=== PATIENT | female | born 1940 | race Caucasian/White ===

== ENCOUNTER → 2023-11-14 14:50 | Outpatient (REF) | payer OTHER, SELFPAY | LOC: HWRAD 14:50 | PROVIDERS: ATTENDING PHYSICIAN Nurse Practitioner Family | DX: J40 Bronchitis, not specified as acute or chronic (principal) | CPT/HCPCS: 71046 ==

== ENCOUNTER → 2023-12-16 07:11 | Outpatient (REF) | payer OTHER, SELFPAY ==
[2023-12-16 09:23] LABS: ALT (SGPT) 18 U/L (0-35); AST (SGOT) 26 U/L (14-36); Albumin 4.1 g/dl (3.5-5.0); Alkaline Phosphatase 107 U/L (38-126); Blood Urea Nitrogen 14 mg/dl (7-17); Carbon Dioxide 25 mmol/L (22-30); Chloride 102 mmol/L (98-107); Glucose 108 mg/dl (70-99); HDL Cholesterol 51 mg/dl; LDL Cholesterol, Calculated 84 mg/dl; Potassium 4.3 mmol/L (3.5-5.1); Sodium 137 mmol/L (135-145); Total Bilirubin 0.7 mg/dl (0.2-1.3); Total Cholesterol 182 mg/dl (50-199); Total Protein 6.9 g/dl (6.3-8.2); Triglyceride 238 mg/dl (10-149); Very Low Density Lipoprotein 47 mg/dl (0-30); eGFR > 60.00
[2023-12-16 09:29] LABS: % Basophils 0.9 % (0-2); % Eosinophils 5.3 % (0-6); % Immature Granulocytes 0.2 % (0-0.5); % Lymphocytes 29.7 % (20.5-51.1); % Monocytes 10.1 % (1.7-9.3); % Neutrophils 53.8 % (42.2-75.2); Absolute Basophils 0.1 10^3/uL (0-0.2); Absolute Eosinophils 0.3 10^3/uL (0-0.7); Absolute Lymphocytes 1.7 10^3/uL (1.2-3.4); Absolute Monocytes 0.6 10^3/uL (0.1-0.6); Hematocrit 33.3 % (37.0-47.0); Hemoglobin 11.5 g/dL (12.0-16.0); Mean Corp Hgb Conc. 34.5 g/dL (33.0-37.0); Mean Corpuscular Hgb 29.2 pg (27.0-31.0); Mean Corpuscular Volume 84.5 fL (81.0-99.0); Mean Platelet Volume 11.7 fL (7.4-10.4); Nucleated Red Blood Cells % 0 %; Platelet Count 303 10^3/uL (130-400); Red Blood Cell Count 3.94 10^6/uL (4.20-5.40); Red Cell Dist. Width 12.9 % (11.5-14.5); White Blood Cell Count 5.6 10^3/uL (4.8-10.8)
[2023-12-16 09:54] LABS: TSH Reflex To Free T4 0.87 uIU/ml (0.47-4.68)
[2023-12-16 10:29] LABS: Glycohemoglobin (HgbA1c) 6.4 % (4.0-5.6)
== END ==
LOC: HWLAB 07:11
PROVIDERS: ATTENDING PHYSICIAN Nurse Practitioner Family
DX: I10 Essential (primary) hypertension (principal); E78.2 Mixed hyperlipidemia; D64.9 Anemia, unspecified; R73.01 Impaired fasting glucose
CPT/HCPCS: 36415; 80053; 80061; 83036; 84443; 85025

== ENCOUNTER → 2024-06-23 07:01 | Outpatient (REF) | payer OTHER, SELFPAY ==
[2024-06-23 09:36] LABS: % Basophils 0.7 % (0-2); % Eosinophils 4.2 % (0-6); % Immature Granulocytes 0.2 % (0-0.5); % Lymphocytes 33.1 % (20.5-51.1); % Monocytes 9.3 % (1.7-9.3); % Neutrophils 52.5 % (42.2-75.2); Absolute Eosinophils 0.2 10^3/uL (0-0.7); Absolute Lymphocytes 1.9 10^3/uL (1.2-3.4); Absolute Monocytes 0.5 10^3/uL (0.1-0.6); Hematocrit 35.8 % (37.0-47.0); Hemoglobin 11.7 g/dL (12.0-16.0); Mean Corp Hgb Conc. 32.7 g/dL (33.0-37.0); Mean Corpuscular Hgb 29.5 pg (27.0-31.0); Mean Corpuscular Volume 90.2 fL (81.0-99.0); Mean Platelet Volume 12.5 fL (7.4-10.4); Nucleated Red Blood Cells % 0 %; Platelet Count 228 10^3/uL (130-400); Red Blood Cell Count 3.97 10^6/uL (4.20-5.40); Red Cell Dist. Width 12.9 % (11.5-14.5); White Blood Cell Count 5.7 10^3/uL (4.8-10.8)
[2024-06-23 09:47] LABS: ALT (SGPT) 30 U/L (0-35); AST (SGOT) 28 U/L (14-36); Alkaline Phosphatase 92 U/L (38-126); Blood Urea Nitrogen 18 mg/dl (7-17); Calcium 9.6 mg/dl (8.4-10.2); Carbon Dioxide 25 mmol/L (22-30); Chloride 104 mmol/L (98-107); Glucose 109 mg/dl (70-99); HDL Cholesterol 68 mg/dl; LDL Cholesterol, Calculated 107 mg/dl; Potassium 4.1 mmol/L (3.5-5.1); Sodium 138 mmol/L (135-145); Total Bilirubin 0.6 mg/dl (0.2-1.3); Total Cholesterol 215 mg/dl (50-199); Total Protein 6.8 g/dl (6.3-8.2); Triglyceride 203 mg/dl (10-149); Very Low Density Lipoprotein 40 mg/dl (0-30); eGFR > 60.00
[2024-06-23 10:13] LABS: TSH Reflex To Free T4 0.88 uIU/ml (0.47-4.68)
[2024-06-23 10:43] LABS: Glycohemoglobin (HgbA1c) 6.1 % (4.0-5.6)
== END ==
LOC: HWLAB 07:01
PROVIDERS: ATTENDING PHYSICIAN Nurse Practitioner Family
DX: I10 Essential (primary) hypertension (principal); E78.2 Mixed hyperlipidemia; D64.9 Anemia, unspecified; R73.01 Impaired fasting glucose
CPT/HCPCS: 36415; 80053; 80061; 83036; 84443; 85025

== ENCOUNTER → 2024-07-27 11:50 | Outpatient (REF) | payer OTHER, SELFPAY ==
[2024-07-27 16:30] LABS: % Basophils 0.5 % (0-2); % Eosinophils 1.9 % (0-6); % Immature Granulocytes 0.3 % (0-0.5); % Lymphocytes 23.3 % (20.5-51.1); % Monocytes 7.9 % (1.7-9.3); % Neutrophils 66.1 % (42.2-75.2); Absolute Eosinophils 0.1 10^3/uL (0-0.7); Absolute Lymphocytes 1.7 10^3/uL (1.2-3.4); Absolute Monocytes 0.6 10^3/uL (0.1-0.6); Absolute Neutrophils 4.9 10^3/uL (1.4-6.5); Hematocrit 36.7 % (37.0-47.0); Hemoglobin 12.6 g/dL (12.0-16.0); Mean Corp Hgb Conc. 34.3 g/dL (33.0-37.0); Mean Corpuscular Hgb 29.4 pg (27.0-31.0); Mean Corpuscular Volume 85.7 fL (81.0-99.0); Nucleated Red Blood Cells % 0 %; Platelet Count 239 10^3/uL (130-400); Red Blood Cell Count 4.28 10^6/uL (4.20-5.40); Red Cell Dist. Width 12.5 % (11.5-14.5); White Blood Cell Count 7.4 10^3/uL (4.8-10.8)
[2024-07-27 16:39] LABS: Blood Urea Nitrogen 16 mg/dl (7-17); Calcium 9.7 mg/dl (8.4-10.2); Carbon Dioxide 24 mmol/L (22-30); Chloride 99 mmol/L (98-107); Glucose 113 mg/dl (70-99); Sodium 136 mmol/L (135-145); eGFR > 60.00
[2024-07-27 17:10] LABS: TSH Reflex To Free T4 0.32 uIU/ml (0.47-4.68)
[2024-07-27 17:39] LABS: Free T4 1.43 ng/dl (0.78-2.19)
== END ==
LOC: HWLAB 11:50
PROVIDERS: ATTENDING PHYSICIAN Nurse Practitioner Family
DX: I10 Essential (primary) hypertension (principal)
CPT/HCPCS: 36415; 80048; 84439; 84443; 85025

== ENCOUNTER → 2024-08-04 12:49 | Outpatient (REF) | payer OTHER, SELFPAY ==
[2024-08-04 17:05] LABS: TSH Reflex To Free T4 0.04 uIU/ml (0.47-4.68)
[2024-08-04 17:33] LABS: Free T4 1.53 ng/dl (0.78-2.19)
== END ==
LOC: HWLAB 12:49
PROVIDERS: ATTENDING PHYSICIAN Nurse Practitioner Family
DX: R94.6 Abnormal results of thyroid function studies (principal)
CPT/HCPCS: 36415; 84439; 84443

== ENCOUNTER → 2024-08-18 11:00 | Outpatient (REF) | payer OTHER, SELFPAY | LOC: HWRCS 11:00 | PROVIDERS: ATTENDING PHYSICIAN Nuclear Medicine Nuclear Cardiology; FAMILY PHYSICIAN Nurse Practitioner Family | DX: I10 Essential (primary) hypertension (principal); I34.0 Nonrheumatic mitral (valve) insufficiency; R60.0 Localized edema | CPT/HCPCS: 93306 ==

== ENCOUNTER → 2024-11-13 09:24 | Outpatient (REF) | payer OTHER, SELFPAY | LOC: HWRAD 09:24 | PROVIDERS: ATTENDING PHYSICIAN Nurse Practitioner Family; FAMILY PHYSICIAN Nurse Practitioner Family | DX: E05.90 Thyrotoxicosis, unspecified without thyrotoxic crisis or storm (principal) | CPT/HCPCS: 76536 ==

== ENCOUNTER → 2024-11-24 07:02 | Outpatient (REF) | payer OTHER, SELFPAY ==
[2024-11-24 10:35] LABS: Free T4 1.41 ng/dl (0.78-2.19)
[2024-11-24 10:39] LABS: Free T3 3.93 pg/ml (2.77-5.27)
[2024-11-24 14:50] LABS: TSH 0.57 uIU/ml (0.47-4.68)
[2024-11-26 03:04] LABS: Thyroid Peroxidase Ab (TPO) 39.9 IU/mL (0.0-9.0)
[2024-11-26 03:44] LABS: Thyroglobulin 2.4 ng/mL (1.3-31.8); Thyroglobulin Antibodies <1.5 IU/mL (0.0-4.0)
[2024-11-26 10:50] LABS: TSH Receptor Antibody 1.24 IU/L (<=1.75)
[2024-11-26 18:33] LABS: Thyroid Stim. Immunoglobulin 0.93 IU/L (<=0.54)
== END ==
LOC: HWLAB 07:02
PROVIDERS: ATTENDING PHYSICIAN Nurse Practitioner Family; FAMILY PHYSICIAN Nurse Practitioner Family
DX: E05.90 Thyrotoxicosis, unspecified without thyrotoxic crisis or storm (principal)
CPT/HCPCS: 36415; 83520; 84432; 84439; 84443; 84445; 84481; 86376; 86800

== ENCOUNTER → 2024-11-26 06:28 | Outpatient (REF) | payer OTHER, SELFPAY | LOC: RAD 06:28 | PROVIDERS: ATTENDING PHYSICIAN Nurse Practitioner Family; FAMILY PHYSICIAN Nurse Practitioner Family | DX: E05.90 Thyrotoxicosis, unspecified without thyrotoxic crisis or storm (principal) | CPT/HCPCS: 78014; A9516 ==

== ENCOUNTER → 2024-12-14 06:37 | Outpatient (REF) | payer OTHER, SELFPAY ==
[2024-12-14 09:58] LABS: % Basophils 0.7 % (0-2); % Eosinophils 3.6 % (0-6); % Immature Granulocytes 0.3 % (0-0.5); % Lymphocytes 30.7 % (20.5-51.1); % Monocytes 9.7 % (1.7-9.3); Absolute Eosinophils 0.2 10^3/uL (0-0.7); Absolute Lymphocytes 1.8 10^3/uL (1.2-3.4); Absolute Monocytes 0.6 10^3/uL (0.1-0.6); Absolute Neutrophils 3.3 10^3/uL (1.4-6.5); Hematocrit 34.4 % (37.0-47.0); Mean Corp Hgb Conc. 34.9 g/dL (33.0-37.0); Mean Platelet Volume 12.7 fL (7.4-10.4); Nucleated Red Blood Cells % 0 %; Platelet Count 190 10^3/uL (130-400); Red Cell Dist. Width 12.4 % (11.5-14.5); White Blood Cell Count 5.9 10^3/uL (4.8-10.8)
[2024-12-14 10:23] LABS: Glycohemoglobin (HgbA1c) 6.2 % (4.0-5.6)
[2024-12-14 10:59] LABS: ALT (SGPT) 15 U/L (0-35); AST (SGOT) 19 U/L (14-36); Alkaline Phosphatase 67 U/L (38-126); Blood Urea Nitrogen 19 mg/dl (7-17); Calcium 9.1 mg/dl (8.4-10.2); Carbon Dioxide 18 mmol/L (22-30); Chloride 108 mmol/L (98-107); Glucose 114 mg/dl (70-99); HDL Cholesterol 55 mg/dl; LDL Cholesterol, Calculated 97 mg/dl; Potassium 3.7 mmol/L (3.5-5.1); Sodium 136 mmol/L (135-145); Total Cholesterol 182 mg/dl (50-199); Total Protein 6.9 g/dl (6.3-8.2); Triglyceride 154 mg/dl (10-149); Very Low Density Lipoprotein 30 mg/dl (0-30); eGFR > 60.00
== END ==
LOC: HWLAB 06:37
PROVIDERS: ATTENDING PHYSICIAN Nurse Practitioner Family
DX: I10 Essential (primary) hypertension (principal); E78.2 Mixed hyperlipidemia; D64.9 Anemia, unspecified; R73.01 Impaired fasting glucose
CPT/HCPCS: 36415; 80053; 80061; 83036; 85025

== ENCOUNTER 2025-01-25 22:19 | Observation (INO) | payer OTHER, SELFPAY ==
[2025-01-25 17:17] VITALS: BP 218/94
[2025-01-25 17:41] LABS: Hematocrit 34.3 % (37.0-47.0); Hemoglobin 11.9 g/dL (12.0-16.0); Mean Corp Hgb Conc. 34.7 g/dL (33.0-37.0); Mean Corpuscular Volume 85.5 fL (81.0-99.0); Nucleated Red Blood Cells % 0 %; Platelet Count 240 10^3/uL (130-400); Red Cell Dist. Width 12.1 % (11.5-14.5)
[2025-01-25 17:48] LABS: INR 1.01; PT 13.6 Sec (11.4-14.6)
[2025-01-25 17:51] LABS: ALT (SGPT) 17 U/L (0-35); AST (SGOT) 24 U/L (14-36); Albumin 4.4 g/dl (3.5-5.0); Alkaline Phosphatase 84 U/L (38-126); Blood Urea Nitrogen 16 mg/dl (7-17); Calcium 9.6 mg/dl (8.4-10.2); Carbon Dioxide 22 mmol/L (22-30); Chloride 102 mmol/L (98-107); Glucose 111 mg/dl (70-99); Potassium 3.5 mmol/L (3.5-5.1); Sodium 133 mmol/L (135-145); Total Protein 7.3 g/dl (6.3-8.2); eGFR > 60.00
[2025-01-25 18:20] LABS: Troponin I 0.059 ng/ml
--- NOTE | 2025-01-25 19:40 | ED.GENMED ---
History of Present Illness
General
Chief Complaint: Blood Pressure Problem
Source: patient
Time Seen by Provider: 01/25/25 19:26
History of Present Illness
History of Present Illness:
84-year-old female presents to the emergency room for evaluation of elevated blood pressure. Patient went for a epidural injection today. She was noted to have significantly elevated blood pressure of 230/110. Patient then followed up with her
primary care provider where her blood pressure was 220 systolic. This prompted her referral to the emergency room. She denies any chest pain, shortness of breath, headache, abdominal pain or back pain. Patient does endorse right-sided neck pain
which she states is consistent with her arthritis that she commonly has. Patient has had no limitations in her activities of daily living. She cleans her house between going to the orthopedic appointment and following up with her family doctor.
Phy Exam
Physical Exam
Physical Exam:
General: Awake, Alert, Oriented X3. No acute distress. Appears stated age
Vitals: Hypertensive
Head: Atraumatic
Eyes: Pupils equal, EOMI
Throat: Airway intact, no exudates
Neck: Trachea midline
Lungs: Clear and equal b/l
Heart: Regular rate, no murmurs
Abd: Soft, Nontender, No pulsatile mass
Neuro: Nonfocal
Skin: Warm, dry, no rash
Extremities: pulses equal b/l, no edema
Course
Orders/Labs/Results
Orders:
Orders
01/25/25 Breakfast
Cholesterol Lowering
At Your Request: Limited Participation
Does patient need a safe tray?: No
Cholesterol Lowering: Sodium, 2 Gram
01/25/25 17:24
Electrocardiogram (*1) Urgent
Reason for Study: Chest Pain
EKG- Treatment ONCE
01/25/25 17:31
Complete Blood Count/With Diff Urgent
Comprehensive Metabolic Panel Urgent
Prothrombin Time Urgent
Troponin I Urgent
01/25/25 19:43
Electrocardiogram (*1) Urgent
Reason for Study: Hypertension, Benign
EKG- Treatment ONCE
01/25/25 20:15
Metoprolol [Lopressor] 25 mg .ROUTE .STK-MED ONE
Metoprolol [Lopressor] 50 mg .ROUTE .STK-MED ONE
01/25/25 20:18
Metoprolol [Lopressor] 75 mg PO NOW STA
01/25/25 20:22
Troponin I Urgent
01/25/25 21:27
Labetalol HCl [Trandate] 10 mg IV NOW STA
01/25/25 21:33
Acetaminophen [Tylenol] 1,000 mg PO NOW STA
01/25/25 21:58
Admit/Transfer Patient As Directed
Co-Sign Provider:
Level of Care: Observation services
Assign to:: Telemetry
Physician / Group: michael
Diagnosis: HTN urgency
Reason for Telemetry: Other
Other Reason for Telemetry: HTN urgency
Date to Stop Telemetry: 01/27/25
Time to Stop Telemetry: 11:00
PRN Pain Medication Management As Directed
May give lesser potent ordered pain med per pt: Yes
preference::
Protocol:: Medication orders for pain may be administered in a
manner that supports deferring to patient preference
when the pt is:
- Requesting an ordered lesser potent pain medication.
Least to most potent pain medications are defined
as: acetaminophen < NSAID < tramadol < opioids
(morphine, oxycodone, hydromorphone).
- Requesting a lesser dose of the same medication IF
ORDERED.
- Requesting a less intrusive route of administration
if both routes are prescribed by the provider (PO <
IV).
01/25/25 21:59
Code Status As Directed
Resuscitation Status: Full Code
01/25/25 22:13
NIFEdipine EXTENDED RELEASE [Procardia Xl (Extended Release)] 30 mg PO NOW STA
01/25/25 22:36
Acetaminophen [Tylenol/Feverall] 650 mg RECTAL Q4HPRN PRN
Bisacodyl [Dulcolax] 10 mg RECTAL [id number] PRN
Docusate W/Senna [Senokot-S] 1 tablet PO BIDPRN PRN
Polyethylene Glycol Powder [Miralax] 17 grams PO DAILYPRN PRN
01/25/25 22:36
Activity As Directed
Activity Level: As Tolerated
Vital Signs As Directed
Frequency: Per unit guidelines
DX Deep Vein Thrombosis Video Routine
01/25/25 23:00
Flush (0.9% Sodium Chloride) [Flush (Nss)] See Dose Instructions IV PER PROTOCOL
01/26/25 06:00
Complete Blood Count/No Diff IN AM
01/26/25 08:00
Lisinopril [Zestril] 20 mg PO DAILY
Metoprolol Xl [Toprol Xl] 75 mg PO DAILY
NIFEdipine EXTENDED RELEASE [Procardia Xl (Extended Release)] 30 mg PO DAILY
Pantoprazole [Protonix] 40 mg PO DAILY
Pravastatin Sodium [Pravachol] 80 mg PO DAILY
01/26/25 18:00
Enoxaparin Sodium [Lovenox] 40 mg SC QPM
01/27/25 11:00
DC Protocol for Telemetry ONCE
Abnormal Lab Results
01/25/25 01/25/25
17:31 20:22
RBC 4.01 L 10^6/uL
(4.20-5.40)
Hgb 11.9 L g/dL
(12.0-16.0)
Hct 34.3 L %
(37.0-47.0)
MPV 11.8 H fL
(7.4-10.4)
Absolute Monos (auto) 0.8 H 10^3/uL
(0.1-0.6)
Sodium 133 L mmol/L
(135-145)
Creatinine 0.5 L mg/dL
(0.6-1.0)
Glucose 111 H mg/dl
(70-99)
Troponin I 0.059 H* ng/ml 0.058 H* ng/ml
01/25/25 17:31
01/25/25 17:31
Vital Signs
Initial and Last Documented VS:
Initial Vital Signs
Temp Pulse Resp BP Pulse Ox
99.0 F 81 18 218/94 96
01/25/25 17:17 01/25/25 17:17 01/25/25 17:17 01/25/25 17:17 01/25/25 17:17
Last Documented Vital Signs
Temp Pulse Resp BP Pulse Ox
97.7 F 73 16 160/72 96
01/25/25 22:53 01/25/25 22:53 01/25/25 22:53 01/25/25 22:53 01/25/25 22:58
MDM/Problems Addressed
Differential Diagnosis Includes:
Hypertensive emergency, uncontrolled hypertension, renal insufficiency,
MDM/Problems Addressed:
Patient presents with significant elevated blood pressure in the outpatient basis. Patient does not really seem to have any significant symptoms. However in testing her troponin is noted to be mildly elevated. Discussed with Dr. Munoz.
Recommends hospitalization for better blood pressure management. Patient initially given her evening dose of metoprolol which did not significantly affect her blood pressure. She was then given a dose of labetalol. With improvement of blood
pressure.
*Pulse Oximetry
SaO2: 96
Oxygen Mode of Delivery: Room air
Patient hypoxic: no
*Product Safety Officer Interpretation
Rate: normal
Interpretation: normal
Heart Rate: 74
Rhythm: sinus
*Critical Care Note
Total Time (30-74mins, 75-104mins- exclusive of procedures): Not Applicable
ED Attending Note
-
Portions of this chart may have been created with voice recognition software.� Occasional wrong word or��sound alike� substitutions may have occurred due to the inherent limitations of voice recognition software.
Discharge Plan
Departure
Patient Disposition: Admit
Date of Disposition: 01/25/25
Time of Disposition: 21:35
Admit to: IMU
Presentation/result/management discussed w/ accepting MD/DO: Hospitalist
Condition: Fair
Discharge Problem:
Uncontrolled hypertension, Elevated troponin
Interventions
Interventions:
*Risk Screen - Suicide Last Done: 01/25/25 17:17
*General Assessment Last Done: 01/25/25 17:17
*Neglect/Abuse Screening Last Done: 01/25/25 17:17
*ED- Fall Risk Assessment Last Done: 01/25/25 19:56
*ED COVID-19 Vaccine History Last Done: 01/25/25 19:56
*Nursing Disposition Last Done: 01/25/25 22:32
ED- Cardiac Assessment Last Done: 01/25/25 19:52
ED- Neurological Assessment Last Done: 01/25/25 19:52
ED- Pulmonary Assessment Last Done: 01/25/25 19:52
Discharge Date and Time
Discharge Date/Time: 01/25/25 22:34
[2025-01-25 19:50] VITALS: BP 205/66
[2025-01-25 19:54] VITALS: BMI 31.1
[2025-01-25] MEDS: LOPRESSOR 75 MG PO (20:19)
[2025-01-25 20:57] VITALS: BP 211/90
[2025-01-25 21:00] VITALS: BP 203/79
[2025-01-25 21:07] LABS: Troponin I 0.058 ng/ml
[2025-01-25] MEDS: TRANDATE 10 MG IV (21:31)
--- NOTE | 2025-01-25 21:35 | HPS.HSE ---
Addendum entered and electronically signed by Frantz Still MD 01/25/25 22:15:
see update note for addendum
Original Note:
Family Physician
-
Family Physician: BARRETT Fowler
Chief Complaint
-
elevated blood pressure
History of Present Illness
84-year-old female with past medical history for hypertension, hyperlipidemia, GERD presented to us with elevated blood pressure. Patient went for a epidural injection today for back pain . she was noted to have significantly elevated blood
pressure of 230/110. Patient then followed up with her primary care provider where her blood pressure was 220 systolic. This prompted her referral to the emergency room. She denies any chest pain, shortness of breath, headache, abdominal pain or
back pain. Patient does endorse right-sided neck pain which she states is consistent with her arthritis that she commonly has. She has not missed any of her medication. Denied dysuria hematuria.
Patient received a dose of labetalol, Lopressor. Admitted for further management
Medical History
Past Medical History
Past Medical History: Reports Other
Additional Past Medical History:
Osteoarthritis
Hyperlipidemia
Hypertension
Back/neck pain
Past Surgical History: Reports Other
Additional Past Surgical History:
Hysterectomy
[place] teeth extraction
Joint replacement of the right thumb
Social History
Tobacco: Non-smoker
Alcohol: None
Drug: None
Personal:
Living: With Family
Family History
Family History: Not pertinent
Allergies / Home Medications
Allergies reflects when Allergies were last updated in [employer].
Home Medications with original date entered in [employer]
Allergy/Medication List:
Allergies
Allergy/AdvReac Type Severity Reaction Status Date / Time
nitrofurantoin Allergy Severe Hives Verified 01/25/25 17:17
macrocrystalline (From
Macrodantin)
naproxen (From Aleve) Allergy Unknown Verified 01/25/25 17:17
Home Medications
Biotin 1 tab PO DAILY 04/01/09
Cartia Xt 1 tab PO DAILY 04/01/09
Fish Oil 1 cap PO BID 04/01/09
Flaxseed Oil 1 cap PO BID 04/01/09
alendronate 40 mg tablet (Fosamax) 40 mg PO Q7D 04/01/09
suudkvttgjjf-yartlxxj-pihlbg tablet (Centrum Silver tablet) 1 tab PO DAILY 04/01/09
metoprolol succinate 50 mg tablet,extended release 24 hr 75 mg PO DAILY 01/25/25
Review of Systems
-
Constitutional: Reports No Symptoms
EENT: Reports No Symptoms
Respiratory: Reports No Symptoms
Cardiac: Reports No Symptoms
Abdomen/GI: Reports No Symptoms
: Reports No Symptoms
Musculoskeletal: Reports No Symptoms
Skin: Reports No Symptoms
Neurological: Reports No Symptoms
Endocrine: Reports No Symptoms
Hematologic/Lymphatic: Reports No Symptoms
Psych: Reports No Symptoms
Physical Exam
Vital Signs
Vital Signs
Temp Pulse Resp BP Pulse Ox
97.3 F 68 20 203/79 96
01/25/25 19:55 01/25/25 21:31 01/25/25 21:30 01/25/25 21:31 01/25/25 20:30
Physical Exam
General: Well Developed, Well Nourished and No Apparent Distress
HEENT: NormoCephalic, Moist mucous membranes and Atraumatic
Respiratory: Clear
Cardiac: S1/S2 and Regular Rhythm; No Murmur or Rub
GI: Soft, Non Tender, Non Distended and Normal Bowel Sounds; No Organomegaly
Rectal: Deferred by Provider
Musculoskeletal: No Clubbing, No Cyanosis and No Edema
Skin: No Rash
Neuro: AO x 3 and Nonfocal/grossly intact
Psych: Calm
Laboratory Results
-
01/25/25 17:31
01/25/25 17:31
Laboratory Results
PT 13.6 Sec (11.4-14.6) 01/25/25 17:31
INR 1.01 01/25/25 17:31
Total Bilirubin 0.9 mg/dl (0.2-1.3) 01/25/25 17:31
AST 24 U/L (14-36) 01/25/25 17:31
ALT 17 U/L (0-35) 01/25/25 17:31
Alkaline Phosphatase 84 U/L (38-126) 01/25/25 17:
Troponin I 0.058 ng/ml H* 01/25/25 20:22
Data Reviewed
-
Lab Data: Labs Reviewed by me
Impression/Plan
-
# Hypertension urgency
- Patient was at a dose of labetalol and metoprolol in ER.
-Continue metoprolol 75
- lisinopril 20
-Procardia added
- Hold HCTZ
# Elevated Trop likely secondary to hypertension
- Continue to trend Trope
- Denies chest pain
# Anemia likely from chronic disease
- Hemoglobin stable at 11.9, no active bleeding
- Continue to monitor
#Hyperlipidemia
- Statin continued
# GERD
- PPI continued
# DVT prophylaxis
- Lovenox
# CODE STATUS
- Full code
[2025-01-25] MEDS: TYLENOL 1000 MG PO (21:42)
[2025-01-25 22:00] VITALS: BP 171/56
--- NOTE | 2025-01-25 22:15 | W.PN.UPDATE ---
Update Note
Progress Note Update
I saw and examined the patient.
The CELLOPHANER or Talon note was reviewed and I agree with the note.
Comment: 84 y/o F with hx of HTN, HLD, GERD presents to ER with elevated BP. This was discovered today during her visit for an epidural injection for back pain. That procedure was cancelled and she was referred to PCP office who referred to ER. She
is asymptomatic. Reports compliance with BP meds. Does admit that she might have 'over did it' with salt while on vacation recently.
Exam:
General: Well Developed, Well Nourished and No Apparent Distress
HEENT: NormoCephalic, Moist mucous membranes and Atraumatic
Respiratory: Clear
Cardiac: S1/S2 and Regular Rhythm; No Murmur or Rub
GI: Soft, Non Tender, Non Distended and Normal Bowel Sounds; No Organomegaly
Rectal: Deferred by Provider
Musculoskeletal: No Clubbing, No Cyanosis and No Edema
Skin: No Rash
Neuro: AO x 3 and Nonfocal/grossly intact
Psych: Calm
Plan: Patient with Hypertensive Urgency and mild nonischemic myocardial injury. Continue Toprol XL, continue Lisinopril as 20mg (on 40mg) and start Nifedipine 30mg daily. Stop HCTZ. DCA cards consulted.
[2025-01-25] MEDS: PROCARDIA XL (EXTENDED RELEASE) 30 MG PO (22:24)
[2025-01-25 22:53] VITALS: BP 160/72; BMI 31.1
[2025-01-26 03:14] VITALS: BP 129/60
[2025-01-26 08:00] LABS: Hematocrit 34.5 % (37.0-47.0); Hemoglobin 12.0 g/dL (12.0-16.0); Mean Corp Hgb Conc. 34.8 g/dL (33.0-37.0); Mean Corpuscular Volume 85.8 fL (81.0-99.0); Platelet Count 243 10^3/uL (130-400); Red Cell Dist. Width 12.2 % (11.5-14.5)
[2025-01-26 08:23] VITALS: BP 143/63
[2025-01-26] MEDS: TOPROL XL 75 MG PO (08:33)
[2025-01-26] MEDS: ZESTRIL 20 MG PO (08:34)
[2025-01-26] MEDS: PRAVACHOL 80 MG PO (08:34)
[2025-01-26] MEDS: PROTONIX 40 MG PO (08:34)
[2025-01-26] MEDS: PROCARDIA XL (EXTENDED RELEASE) 30 MG PO (08:34)
--- NOTE | 2025-01-26 10:01 | W.PN.HOSP.TC ---
Today's Communication/Plan
-
Discharge
Assessment / Plan
Assessment / Plan
Gen-AAOx3, NAD
HEENT-NC, AT, anicteric, clear oral mm
Neck-supple
CV-reg, no M, +S1/S2
Lungs-clear B/L
Abd-soft, NT, ND
Ext-no edema
Musculoskeletal-no cyanosis, clubbing
Skin-warm and dry
Neuro-grossly non-focal
Psych-calm, cooperative
Hypertensive urgency -suspect blood pressure uncontrolled due to severe neck pain. Anticipate improvement with adequate pain control. Blood pressure better with nifedipine, continue on discharge. Discontinue hydrochlorothiazide. Continue
lisinopril 40 mg daily, metoprolol. Patient to check blood pressures at home.
Outpatient follow-up with PCP and cardiology.
Acute nonischemic myocardial injury -asymptomatic. Discussed with cardiology, would not pursue workup.
Osteoarthritis
Hyperlipidemia
Obesity due to excess calories
Full code
Dispo -stable for discharge today.
Anticipated Discharge: Today
Subjective/Interval History
-
Date of Service: January 26, 2025
Patient seen and examined, no complaints.
Objective Data
-
Labs:
Laboratory Results
01/26/25
07:17
WBC 7.8
Hgb 12.0
Hct 34.5 L
Plt Count 243
Vital Signs:
Vital Signs
Temp Pulse Resp BP Pulse Ox
98.1 F 75 16 143/63 94
01/26/25 08:23 01/26/25 08:23 01/26/25 08:23 01/26/25 08:23 01/26/25 08:23
I&O
01/25/25 01/26/25 01/27/25
06:59 06:59 06:59
Intake Total 480 / 480
Balance 480 / 480
Review of Systems
-
History Source: Patient
All other systems: Reviewed and negative
--- NOTE | 2025-01-26 10:05 | W.DS.TRANS ---
DC Summary - Molding Process Technician
-
Discharge Instructions:
Discharge Diagnosis/Procedures Uncontrolled hypertension
Diet Low Cholesterol,Low Fat
Activity As tolerated
Driving Restrictions As prior to admission
Bathing Restrictions None
Instructions:
Stand-Alone Forms:
Changes to Home Medications: Yes
Discharge Medications:
DC Medications w/original date entered in [employer]
esomeprazole magnesium 40 mg capsule,delayed release 40 mg PO DAILY 01/25/25
metoprolol succinate 50 mg tablet,extended release 24 hr 75 mg PO DAILY 01/25/25
pravastatin 80 mg tablet 80 mg PO DAILY 01/25/25
lisinopril 20 mg tablet 20 mg PO BID #60 tabs 01/26/25
nifedipine 30 mg tablet,extended release 30 mg PO DAILY #30 tabs 01/26/25
Home Medication Changes
Stop hydrochlorothiazide
Pending Results: No
[2025-01-26 10:39] VITALS: BP 113/44
--- NOTE | 2025-01-26 10:52 | PTCARENOTE ---
Pt reporting slight dizziness with standing. Gait steady. Pt states she has experienced this before and feels comfortable to go home. Dizziness resolved after sitting. VSS. Educated pt on side effects of medications. No further complaints at this
time, daughter to transport home.
--- NOTE | 2025-01-26 11:09 | CON.CAR ---
Addendum entered and electronically signed by Sj Guthrie DO 01/26/25 12:03:
I saw and examined the patient.
The Remote Encoding Operations Supervisor's note was reviewed and I agree with the note.
Comment:
Plan:
Transient elevation of blood pressure was felt secondary to neck pain as patient was supposed to get epidural injection. Procedure was canceled due to hypertensive urgency which spurred admission.
Troponin felt to be non-MA troponin related to hypertension
With hyponatremia, HCTZ was stopped. Continue lisinopril 40 mg daily, Toprol XL to 75 mg daily. Nifedipine added this admission will continue for now. Blood pressures currently well-controlled.
She can reschedule her epidural injection once okay with orthopedics.
Outpatient cardiac follow-up arranged. She will monitor blood pressures as an outpatient.
Discussed with primary service.
Stable for discharge
Original Note:
Consultation
Consultation Request
Date/Time Consultation Performed: 01/26/25
Requesting Provider: Dr. Still
Performing Provider: Roma Cortes PA-C for Dr. Guthrie
Reason for Consultation: HTN, elevated troponin
Medical History
-
Chief Complaint: HTN
History of Present Illness:
Patient is an 84-year-old female with past medical history of hypertension, hyperlipidemia, MR, chronic diastolic congestive heart failure who has recently struggled with neck pain. She had presented to orthopedics office for injection yesterday,
however blood pressure was noted to be significantly elevated. Procedure was canceled and she was sent to ER for further evaluation. She was given dose of IV labetalol in ER, however blood pressure remained elevated so she was admitted overnight
for observation. Also troponin was checked and was elevated at 0.05. Cardiology consulted for blood pressure management and eval of elevated troponin. Patient denies chest pain or shortness of breath.
PMH:
Hypertension
Hyperlipidemia
Mitral regurgitation
Chronic diastolic congestive heart failure
Osteoarthritis
GERD
Past Medical History
Past Medical History: Other (in HPI)
Social History
Tobacco: Non-Smoker
Personal:
Living: With Family
Family History
Family History: Diabetes and Hypertension
Allergies / Home Medications
Allergy/AdvReac Type Severity Reaction Status Date / Time
nitrofurantoin Allergy Severe Hives Verified 01/25/25 17:17
macrocrystalline (From
Macrodantin)
naproxen (From Aleve) Allergy Unknown Verified 01/25/25 17:17
�Medication �Instructions �Recorded �Confirmed �Type
esomeprazole magnesium 40 mg 40 mg PO DAILY Gastrointestinal 01/25/25 01/25/25 History
capsule,delayed release Issue
metoprolol succinate 50 mg 75 mg PO DAILY Blood Pressure 01/25/25 01/25/25 History
tablet,extended release 24 hr
pravastatin 80 mg tablet 80 mg PO DAILY High Cholesterol 01/25/25 01/25/25 History
lisinopril 20 mg tablet 20 mg PO BID #60 tabs 01/26/25 Rx
nifedipine 30 mg tablet,extended 30 mg PO DAILY #30 tabs 01/26/25 Rx
release
Review of Systems
-
History Source: Patient
All other systems: Negative unless noted
Physical Exam
Vital Signs
Temp Pulse Resp BP Pulse Ox
98.0 F 93 16 113/44 94
01/26/25 10:39 01/26/25 10:39 01/26/25 10:39 01/26/25 10:39 01/26/25 10:43
Lab Results
01/26/25 07:17
01/25/25 17:31
Troponin I 0.058 ng/ml H* 01/25/25 20:22
Physical Exam
General: No Apparent Distress and Comfortable
HEENT: Normocephalic, Anicteric and Moist Mucous Membranes
Respiratory: Clear and Non Labored Respirations
Cardiac: S1/S2, Regular Rhythm and Murmur
GI: Soft, Non Tender, Non Distended and Normal Bowel Sounds
Skin: Warm and Dry
Neuro: AO x 3
Impression / Plan
-
Primary Green House Manager: Dr. Guthrie
Assessment:
HTN urgency
Elevated troponin, suspected nonischemic myocardial injury
Neck pain
Hyponatremia
Hypertension
Hyperlipidemia
Mitral regurgitation
Chronic diastolic congestive heart failure
Osteoarthritis
GERD
ECHO 08/18/24: EF 60 to 65%, dense MAC, mean gradient 6 mmHg, mild to moderate mitral stenosis and moderate eccentric MR, mild , mild AR, mild to moderate TR, PAP 35 to 40 mmHg
Plan:
- Patient presented from orthopedic office yesterday, at which time she was supposed to get a epidural injection for neck pain. She was noted to have significantly elevated blood pressure of 230/110 and procedure was canceled, and patient sent to
ER for further evaluation. Suspected that hypertensive urgency fueled by neck pain
- Given hyponatremia noted on arrival, we will stop outpatient HCTZ. Will continue lisinopril 40 mg daily, Toprol 75 mg daily. Nifedipine 30 mg daily added this admission. Blood pressures presently stable at 129/60.
- Elevated troponin felt to be consistent with nonischemic myocardial injury. No chest pain. EKG sinus rhythm
-Recent echo earlier this year as above with preserved EF and mild to moderate valve disease, continue to follow in outpatient setting
- Okay to proceed with OP epidural injection when okay per Ortho
- Will arrange outpatient cardiac follow-up. She will continue to monitor her blood pressures in the outpatient setting and call us if she notices persistent elevations at home on new regimen. She will also follow her weights and note if her lower
extremity edema is worsening with being off of HCTZ.
- Okay for discharge
- Discussed with hospitalist
Data Reviewed
-
EKG: Tracing Personally Visualized and interpreted
Medical Tests (Nuc Med, Echo etc): Report Reviewed by me
Labs: Labs Reviewed by me
Old Records: Reviewed
== END 2025-01-26 11:03 | disposition home or self-care (01) ==
LOC: 4 EAST ACU 22:19
PROVIDERS: Registered Nurse; Student in an Organized Health Care Education/Training Program; ADMITTING PHYSICIAN Internal Medicine; ATTENDING PHYSICIAN Hospitalist; CONSULT PHYSICIAN Nuclear Medicine Nuclear Cardiology; EMERGENCY PHYSICIAN Emergency Medicine; FAMILY PHYSICIAN Nurse Practitioner Family
DX: I16.0 Hypertensive urgency (principal); I5A Non-ischemic myocardial injury (non-traumatic); M19.90 Unspecified osteoarthritis, unspecified site; M54.2 Cervicalgia; M54.9 Dorsalgia, unspecified; I11.0 Hypertensive heart disease with heart failure; E78.5 Hyperlipidemia, unspecified; D64.9 Anemia, unspecified; E66.09 Other obesity due to excess calories; K21.9 Gastro-esophageal reflux disease without esophagitis; E87.1 Hypo-osmolality and hyponatremia; I05.2 Rheumatic mitral stenosis with insufficiency; I50.32 Chronic diastolic (congestive) heart failure; Z88.6 Allergy status to analgesic agent; Z88.3 Allergy status to other anti-infective agents; Z79.899 Other long term (current) drug therapy; Z83.3 Family history of diabetes mellitus; Z82.49 Family history of ischemic heart disease and other diseases of the circulatory system; Z68.31 Body mass index [BMI] 31.0-31.9, adult; Z90.710 Acquired absence of both cervix and uterus
CPT/HCPCS: 80053; 84484; 85025; 85027; 85610; 93005; 96374; 99285; G0378

== ENCOUNTER → 2025-02-03 06:37 | Outpatient (REF) | payer OTHER, SELFPAY ==
[2025-02-03 10:10] LABS: Blood Urea Nitrogen 17 mg/dl (7-17); Calcium 9.6 mg/dl (8.4-10.2); Carbon Dioxide 23 mmol/L (22-30); Chloride 104 mmol/L (98-107); Glucose 118 mg/dl (70-99); Potassium 4.3 mmol/L (3.5-5.1); Sodium 135 mmol/L (135-145); eGFR > 60.00
== END ==
LOC: HWLAB 06:37
PROVIDERS: ATTENDING PHYSICIAN Nurse Practitioner Family
DX: E87.1 Hypo-osmolality and hyponatremia (principal)
CPT/HCPCS: 36415; 80048

== ENCOUNTER → 2025-02-17 06:51 | Outpatient (REF) | payer OTHER, SELFPAY ==
[2025-02-17 10:42] LABS: Blood Urea Nitrogen 15 mg/dl (7-17); Calcium 9.6 mg/dl (8.4-10.2); Carbon Dioxide 25 mmol/L (22-30); Chloride 101 mmol/L (98-107); Glucose 123 mg/dl (70-99); Potassium 3.8 mmol/L (3.5-5.1); Sodium 134 mmol/L (135-145); eGFR > 60.00
== END ==
LOC: HWLAB 06:51
PROVIDERS: ATTENDING PHYSICIAN Nurse Practitioner Family
DX: I10 Essential (primary) hypertension (principal)
CPT/HCPCS: 36415; 80048; 83880

== ENCOUNTER → 2025-03-31 07:07 | Outpatient (REF) | payer OTHER, SELFPAY ==
[2025-03-31 09:45] LABS: Blood Urea Nitrogen 19 mg/dl (7-17); Calcium 9.2 mg/dl (8.4-10.2); Carbon Dioxide 25 mmol/L (22-30); Chloride 104 mmol/L (98-107); Glucose 120 mg/dl (70-99); Potassium 3.6 mmol/L (3.5-5.1); Sodium 137 mmol/L (135-145); eGFR > 60.00
[2025-03-31 10:21] LABS: TSH 0.65 uIU/ml (0.47-4.68)
[2025-03-31 11:43] LABS: Free T3 3.82 pg/ml (2.77-5.27)
== END ==
LOC: HWLAB 07:07
PROVIDERS: ATTENDING PHYSICIAN Nurse Practitioner Family; FAMILY PHYSICIAN Nurse Practitioner Family
DX: E05.90 Thyrotoxicosis, unspecified without thyrotoxic crisis or storm (principal); I10 Essential (primary) hypertension
CPT/HCPCS: 36415; 80048; 84439; 84443; 84481